=== PATIENT | female | born 1960 | race Caucasian/White ===

== ENCOUNTER → 2020-07-17 | Day surgery (SDC) | payer BC ==
[~2020-07-17] MED LIST: AMLODIPINE BESYL5 MG PO; CLARITIN-D 241 EACH PO; CYCLOBENZAPRINE5 MG PO; DUEXIS 800-26.1 EACH PO; FENTANYL CITRATE/PF 100MCG/2 ML INJ ONE; GLUCAGON FOR INJ 1 MG VIAL ONE; IBUPROFEN PO; IBUPROFEN600 MG PO; MIDAZOLAM HCL 2 MG/2 ML VIAL ONE; NEURONTIN300 MG PO; NEXIUM20 MG PO; NEXIUM40 MG PO; NORCO 10-325 T1 EACH PO; PHENTERMINE H37.5 MG PO; PRAVACHOL20 MG PO; SOMA350 MG PO; ZESTRIL20 MG PO
[2020-07-17 18:45] VITALS: BP 140/79
== END | disposition home or self-care (01) ==
LOC: OR 13:05
PROVIDERS: ATTEND Internal Medicine Gastroenterology
DX: K29.70 Gastritis, unspecified, without bleeding (principal); D12.4 Benign neoplasm of descending colon; D12.5 Benign neoplasm of sigmoid colon; K20.90 Esophagitis, unspecified without bleeding; K21.9 Gastro-esophageal reflux disease without esophagitis; K57.30 Diverticulosis of large intestine without perforation or abscess without bleeding; K59.03 Drug induced constipation; K62.5 Hemorrhage of anus and rectum; B96.81 Helicobacter pylori [H. pylori] as the cause of diseases classified elsewhere; K64.8 Other hemorrhoids; I10 Essential (primary) hypertension; I34.1 Nonrheumatic mitral (valve) prolapse; Z88.1 Allergy status to other antibiotic agents; Z01.810 Encounter for preprocedural cardiovascular examination; Z01.812 Encounter for preprocedural laboratory examination; Z20.828 Contact with and (suspected) exposure to other viral communicable diseases; Z68.26 Body mass index [BMI] 26.0-26.9, adult
CPT/HCPCS: 43239; 43450; 45385; 93005; U0002; J1610; J2250; J3010